=== PATIENT | female | born 1950 | race Caucasian/White ===

== ENCOUNTER → 2016-08-24 | Outpatient (CLI) | payer BC ==
[~2016-08-24] MED LIST: ACT35 PO; CALCTAB5 PO; MENEST; OMEG10007 PO
--- NOTE | 2016-08-25 13:25 | MAMMOGRAPHY REPORT ---
BILATERAL DIGITAL SCREENING MAMMOGRAM TOMOSYNTHESIS WITH CAD: 08/24/2016 CLINICAL HISTORY: Routine screening. Patient has no complaints. TECHNIQUE: Breast tomosynthesis in addition to standard 2D mammography was performed. Current study was also evaluated with a Computer Aided Detection (CAD) system. COMPARISON: Comparison is made to exams dated: 08/20/2015 mammogram, 08/16/2013 mammogram, 08/17/2014 mammogram, 07/18/2012 ultrasound, 08/20/2011 mammogram, and 07/10/2009 mammogram - [facility]. BREAST COMPOSITION: There are scattered areas of fibroglandular density in both breasts. FINDINGS: The parenchymal pattern is similar to prior exams. No new suspicious mass, architectural distortion or cluster of microcalcifications is seen. IMPRESSION: ACR BI-RADS CATEGORY 2: BENIGN There is no mammographic evidence of malignancy. A 1 year screening mammogram is recommended. The p atient will receive written notification of the results. Approximately 10% of breast cancers are not detected with mammography. A negative mammographic repor t should not delay biopsy if a clinically suggestive mass is present. Cata Gray M.D. ay/:08/24/2016 16:51:01 Fisher Eel: Elyse ONTIVEROS(Inez)(M), [facility] letter sent: Normal 1/2 BI-RADS Code: ACR BI-RADS Category 2: Benign
== END | disposition home or self-care (01) ==
LOC: C.MAMM 11:57
DX: Z12.31 Encounter for screening mammogram for malignant neoplasm of breast (principal)

== ENCOUNTER → 2017-03-22 | Outpatient (CLI) | payer OTHER ==
[2017-03-22 09:56] LABS: CHOLESTEROL/HDL RATIO 2.8
--- NOTE | 2017-04-08 13:47 | CODING QUERY MEDICAL NECESSITY ---
CQSUPPORTING DIAGNOSIS NEEDED A supporting diagnosis is required for the test/procedure performed on this patient in order for us to be reimbursed by the patient's insurance. Please provide a supporting diagnosis for the following test/procedure listed below next to the test name along with your signature. *If there is no additional diagnosis for this patient that would support the following test/procedure please document that below next to the test/procedure. Test(s)/Procedure(s) that require a supporting diagnosis: LUPE 03/22/17 GLUCOSE TEST Provider Signature: Date: Thank you Sirisha Meraz [employer] Once completed, please kindly fax back to [phone] For questions please call [phone]
== END | disposition home or self-care (01) ==
LOC: C.LAB 07:38
DX: Z13.9 Encounter for screening, unspecified (principal)

== ENCOUNTER → 2017-03-22 | Outpatient (CLI) | payer OTHER ==
--- NOTE | 2017-04-28 11:56 | CODING QUERY MEDICAL NECESSITY ---
CQSUPPORTING DIAGNOSIS NEEDED A supporting diagnosis is required for the test/procedure performed on this patient in order for us to be reimbursed by the patient's insurance. Please provide a supporting diagnosis for the following test/procedure listed below next to the test name along with your signature. *If there is no additional diagnosis for this patient that would support the following test/procedure please document that below next to the test/procedure. Test(s)/Procedure(s) that require a supporting diagnosis: DOS 03/22/17 BLOOD GLUCOSE TEST Provider Signature: Date: Thank you Sirisha Meraz [employer] Information Management Once completed, please kindly fax back to [phone] For questions please call [phone]
== END | disposition home or self-care (01) ==
LOC: C.MAMM 08:01
DX: M85.851 Other specified disorders of bone density and structure, right thigh (principal); M85.852 Other specified disorders of bone density and structure, left thigh; Z78.0 Asymptomatic menopausal state; Z13.9 Encounter for screening, unspecified

== ENCOUNTER → 2017-08-25 | Outpatient (CLI) | payer OTHER ==
--- NOTE | 2017-08-25 15:38 | MAMMOGRAPHY REPORT ---
BILATERAL DIGITAL SCREENING MAMMOGRAM TOMOSYNTHESIS WITH CAD: 08/25/2017 CLINICAL HISTORY: Routine screening. TECHNIQUE: Breast tomosynthesis in addition to standard 2D mammography was performed. Current study was also evaluated with a Computer Aided Detection (CAD) system. COMPARISON: Comparison is made to exams dated: 08/24/2016 mammogram, 08/20/2015 mammogram, 08/17/2014 m ammogram, 08/16/2013 mammogram, 07/18/2012 mammogram, and 08/20/2011 mammogram - [facility]. BREAST COMPOSITION: There are scattered areas of fibroglandular density in both breasts. FINDINGS: There is a 7 mm irregular focal asymmetry in the upper inner anterior left breast, for whi ch additional spot compression tomosynthesis views and possible ultrasound are recommended. A possib le grouping of faint microcalcifications in the lateral posterior left breast, best seen on the CC vi ew but thought to project superiorly based on the MLO view, need additional spot magnification views. No other suspicious mass, architectural distortion or cluster of microcalcifications is seen bilatera lly. IMPRESSION: ACR BI-RADS CATEGORY 0: INCOMPLETE EVALUATION: NEED ADDITIONAL IMAGING EVALUATION The 7 mm irregular focal asymmetry in the upper inner anterior left breast and possible microcalcific ations in the lateral posterior left breast need additional imaging evaluation. The patient will be called to schedule an appointment. Approximately 10% of breast cancers are not detected with mammography. A negative mammographic report should not delay biopsy if a clinically suggestive mass is present. Cata Gray M.D. ay/:08/25/2017 13:18:43 Dentist Attendant: Meeta ONTIVEROS(Inez)(M), [facility] letter sent: Addl Imaging 0 BI-RADS Code: ACR BI-RADS Category 0: Incomplete Evaluation: Need Additional Imaging Evaluation
== END | disposition home or self-care (01) ==
LOC: C.MAMM 11:56
DX: Z12.31 Encounter for screening mammogram for malignant neoplasm of breast (principal); N64.89 Other specified disorders of breast

== ENCOUNTER → 2017-09-02 | Outpatient (CLI) | payer OTHER ==
[2017-09-02 14:15] LABS: INFLUENZA B ANTIGEN Neg for Influ B (NEG)
== END | disposition home or self-care (01) ==
LOC: C.LAB 12:16
DX: R50.9 Fever, unspecified (principal); R19.7 Diarrhea, unspecified

== ENCOUNTER → 2017-09-08 | Outpatient (CLI) | payer OTHER ==
--- NOTE | 2017-09-08 14:03 | MAMMOGRAPHY REPORT ---
UNILATERAL LEFT DIGITAL DIAGNOSTIC MAMMOGRAM TOMOSYNTHESIS AND TARGETED LEFT ULTRASOUND: 09/08/2017 CLINICAL HISTORY: Callback from screening mammogram for left breast asymmetry and left breast calcifi cations. TECHNIQUE: Breast tomosynthesis in addition to standard 2D mammography was performed. Spot compress ion left CC and MLO 2-D and tomosynthesis images and spot magnification left CC and ML views were obt ained. COMPARISON: Comparison is made to exams dated: 08/25/2017 mammogram, 08/24/2016 mammogram, 08/20/2015 m ammogram, 08/17/2014 mammogram, 08/16/2013 mammogram, and 07/18/2012 mammogram - [facility]. BREAST COMPOSITION: There are scattered areas of fibroglandular density in the left breast. FINDINGS: The previously described asymmetry within the left upper inner quadrant effaces to a baseli ne appearance on the additional spot compression views. The asymmetry appears similar to multiple pr ior exams including the 2007 exam on the additional views, and has the appearance of normal fibroglan dular tissue on the additional tomosynthesis images. Spot magnification views demonstrate a few scat tered punctate benign-appearing calcifications within the left upper outer quadrant, without a suspic ious cluster of microcalcifications seen. Targeted ultrasound was performed of the area of the left breast asymmetry in the left upper outer qu adrant periareolar region. Sonographically normal tissue is seen in this region, without evidence of a mass or other suspicious sonographic abnormality. IMPRESSION: ACR BI-RADS CATEGORY 2: BENIGN, TARGETED ULTRASOUND ACR BI-RADS CATEGORY 2: BENIGN The left breast asymmetry effaces on the additional views, without corresponding sonographic abnormal ity evident. Findings are benign and compatible with normal overlapping fibroglandular tissue. No s uspicious cluster of calcifications noted in the left upper outer quadrant on the additional views. There is no mammographic or targeted sonographic evidence of malignancy. A 1 year screening mammogram is recommended. The patient has been verbally notified of the results. Approximately 10% of breast cancers are not detected with mammography. A negative mammographic report should not delay biopsy if a clinically suggestive mass is present. Cecille Wray M.D. ah/:09/08/2017 08:42:58 Shuttle Bus Driver: Pauline ONTIVEROS(Inez)(M), [facility] letter sent: Normal /2 BI-RADS Code: ACR BI-RADS Category 2: Benign Ultrasound BI-RADS: ACR BI-RADS Category 2: Benign
== END | disposition home or self-care (01) ==
LOC: C.MAMM 08:19
DX: N64.89 Other specified disorders of breast (principal)